=== PATIENT | male | born 1985 | race Caucasian/White ===

== ENCOUNTER 2019-07-12 14:39 | Emergency (ER) | payer SELFPAY | END 2019-07-12 14:51 | disposition left against medical advice (07) | LOC: EMS 14:44 | DX: Z53.21 Procedure and treatment not carried out due to patient leaving prior to being seen by health care provider (principal) ==

== ENCOUNTER 2021-04-06 12:57 | Emergency (ER) | payer MEDICAID ==
[~2021-04-06] VITALS: Ht 170.2 cm; Wt 84.1 kg
[2021-04-06 13:02] VITALS: BP 146/108
== END 2021-04-06 16:18 | disposition left against medical advice (07) ==
LOC: EMS 13:01
DX: H92.01 Otalgia, right ear (principal); Z53.21 Procedure and treatment not carried out due to patient leaving prior to being seen by health care provider